=== PATIENT | male | born 1965 | race Caucasian/White ===

== ENCOUNTER 2021-12-21 16:59 | Emergency (ER) | payer OTHER ==
--- OUTSIDE RECORDS SUMMARY | 2021-12-21 17:02 | XMS REPORT | Continuity of Care Document ---
:1965 Author Organization [facility] t Address [address] [place] [address] Care Team Providers Name Role Phone ROSE Attending Clinician Unavailable Shital SPEARS Attending Clinician Unavailable Payers Payer Name Policy Type Policy Number Effective Date Expiration Date S ob [employer] CHO[employer] POS [id number] 2018 00:00:00 II Problems This patient has no known problems. Allergies, Adverse Reactions, Alerts Allergy Allergy Status Severity Reaction(s) Onset Inactive Treating Comm ents Source Name Type Date Date Clinician NO KNOWN Drug Active [facility] ALLERGIE Class [facility] Medications This patient has no known medications. Procedures This patient has no known procedures. Encounters Start End Encounter Admission Attending Care Care Encounter Source Date/Time Date/Time Type Type Clinicians Facility Department ID 2020-10-09 2020-10-09 Outpatient Iris ROSE [facility] [id number] [facility] 09:30:00 09:30:00 EDISON [id number] [facility] 2020-10-09 2020-10-09 Outpatient Iris SPEARS [facility] [id number] [facility] 09:30:00 09:30:00 NANCY [facility] Results This patient has no known results.
[2021-12-21 18:47] LABS: Absolute Lymphocytes (CBC) 1.6 K/uL (0.7-4.9); Hematocrit 44.4 % (39.6-49.0); Lymphocytes % 19.4 % (15.3-44.8); MPV 8.2 fL (7.6-11.3)
[2021-12-21 18:54] LABS: Protime INR 1.01
--- NOTE | 2021-12-21 19:01 | RAD REPORT ---
EXAM DESCRIPTION: RAD - Chest Single View - 12/21/2021 6:44 pm CLINICAL HISTORY: SOB COMPARISON: CHEST SINGLE VIEW dated 01/27/2009 FINDINGS: Lines: None. Lungs: No evidence of edema or pneumonia. Pleural: No significant pleural effusions or pneumothorax. Cardiac: The heart size is within normal limits. Bones: No acute fractures. Other: IMPRESSION: No acute cardiopulmonary disease.
[2021-12-21 19:08] LABS: ALT/SGPT 32 U/L (12-78); AST/SGOT 17 U/L (15-37); Albumin 4.3 g/dL (3.4-5.0); Alkaline Phosphatase 79 U/L (45-117); BUN Blood Urea Nitrogen 12 mg/dL (7-18); Bicarbonate 27 mmol/L (21-32); Bilirubin Direct 0.4 mg/dL (0-0.2); Bilirubin Total 2.3 mg/dL (0.2-1.0); Glucose Level 109 mg/dL (74-106); Potassium 3.6 mmol/L (3.5-5.1); Protein, Total 7.9 g/dL (6.4-8.2); Sodium Level 139 mmol/L (136-145)
[2021-12-21 21:45] LABS: Urine Blood Negative (Negative); Urine Glucose Negative (Negative); Urine Protein Negative (Negative)
[2021-12-21 22:37] LABS: Barbiturates NEGATIVE (NEGATIVE); Benzodiazepines NEGATIVE (NEGATIVE); Cocaine NEGATIVE (NEGATIVE); METHAMPHETAM NEGATIVE (NEGATIVE); Methadone NEGATIVE (NEGATIVE); Opiates NEGATIVE (NEGATIVE); Phencyclidine NEGATIVE (NEGATIVE); THC Cannibis NEGATIVE (NEGATIVE)
--- NOTE | 2021-12-21 23:03 | EDPHYS ---
Physician Documentation [facility] Name: Sandro Gomez Age: 56 yrs Sex: Male : 1965 Arrival Date: 12/21/2021 Time: 17:03 Bed 7 Private MD: ED Physician Kaiden Roberts HPI: 12/21 17:36 This 56 yrs old Male presents to ER via Ambulatory with complaints of Nausea, Decreased jmm Appetite - w/ weight loss. 17:36 The patient presents with a history of heart racing. Onset: The symptoms/episode jmm began/occurred gradually, 4 day(s) ago. Duration: The patient or guardian reports multiple episodes. Modifying factors: The symptoms are aggravated by nothing. The symptoms are alleviated by nothing. This is a 56 year old male that presents to the ED with complaints of palpitations, sob, 6 lb weight loss over the past 4 to 5 days. Patient is concerned he may be inhaling toxic material in his condo. Also states having decreased appetite and fatigue. . Historical: - Allergies: 17:17 No Known Allergies; ww - Home Meds: 17:17 None [Active]; ww - PSHx: 17:17 Appendectomy; ww - Immunization history:: Adult Immunizations up to date. - Social history:: Smoking status: Patient denies any tobacco usage or history of. Patient/guardian denies using street drugs. ROS: 17:36 Cardiovascular: Positive for palpitations, Negative for chest pain. jmm 17:36 Respiratory: Positive for shortness of breath. 17:36 Abdomen/GI: Positive for nausea. 17:36 All other systems are negative. Exam: 17:36 Constitutional: This is a well developed, well nourished patient who is awake, alert, jmm and in no acute distress. Head/Face: atraumatic. Eyes: EOMI, no conjunctival erythema appreciated ENT: Moist Mucus Membranes Neck: Trachea midline, Supple Chest/axilla: Normal chest wall appearance and motion. Cardiovascular: Regular rate and rhythm. No edema appreciated Respiratory: Normal respirations, no respiratory distress appreciated Abdomen/GI: Non distended, soft Back: Normal ROM Skin: General appearance color normal MS/ Extremity: Moves all extremities, no obvious deformities appreciated, no edema noted to the lower extremities Neuro: Awake and alert Psych: Behavior is normal, Mood is normal, Patient is cooperative and pleasant Vital Signs: 17:15 BP 151 / 99; Pulse 83; Resp 18; Temp 98.8; Pulse Ox 99% on R/A; Weight 77.11 kg; Height ww 5 ft. 10 in. (177.80 cm); Pain 0/10; 17:15 Body Mass Index 24.39 (77.11 kg, 177.80 cm) ww MDM: 17:36 Patient medically screened. jovana 23:00 Data reviewed: vital signs, nurses notes. Counseling: I had a detailed discussion with teri the patient and/or guardian regarding: the historical points, exam findings, and any diagnostic results supporting the discharge/admit diagnosis, lab results, radiology results, the need for outpatient follow up, to return to the emergency department if symptoms worsen or persist or if there are any questions or concerns that arise at home. ED course: Patient is alert nontoxic in appearance in the ED. No signs of respiratory distress. Labs are unremarkable. Patient advised follow-up PCP and otherwise given strict return precautions. Patient understood and agrees plan of care.. 12/21 18:15 Order name: Acetaminophen; Complete Time: 19:18 [facility] 12/21 18:15 Order name: Basic Metabolic Panel; Complete Time: 19:18 [facility] 12/21 18:15 Order name: CBC with Diff; Complete Time: 19:05 [facility] 12/21 18:15 Order name: ETOH Level; Complete Time: 19:05 [facility] 12/21 18:15 Order name: Hepatic Function; Complete Time: 19:18 [facility] 12/21 18:15 Order name: PT-INR; Complete Time: 19:05 [facility] 12/21 18:15 Order name: Ptt, Activated; Complete Time: 19:05 [facility] 12/21 18:15 Order name: Salicylate; Complete Time: 19:18 [facility] 12/21 18:15 Order name: Urine Drug Screen; Complete Time: 22:40 [facility] 12/21 18:15 Order name: EKG; Complete Time: 18:16 [facility] 12/21 18:15 Order name: EKG - Nurse/Tech; Complete Time: 18:45 [facility] 12/21 18:15 Order name: Chest Single View XRAY; Complete Time: 19:05 [facility] 12/21 19:19 Order name: Troponin High Sensitivity; Complete Time: 21:23 [facility] 12/21 21:45 Order name: Urine Dipstick-Ancillary; Complete Time: 21:47 [facility] 12/21 18:15 Order name: IV Saline Lock; Complete Time: 18:45 [facility] 12/21 18:15 Order name: Labs collected and sent; Complete Time: 18:45 [facility] 12/21 18:15 Order name: Urine Dipstick-Ancillary (obtain specimen); Complete Time: 21:53 [facility] Administered Medications: No medications were administered Disposition Summary: 12/21/21 23:01 Discharge Ordered Location: Home [facility] Condition: Stable jm Diagnosis - Person with feared health complaint in whom no diagnosis is made [facility] Followup: [facility] - With: Private Physician - When: 2 - 3 days - Reason: Recheck today's complaints, Continuance of care, Re-evaluation by your physician Forms: - Medication Reconciliation Form [facility] - Thank You Letter [facility] - Antibiotic Education [facility] - Prescription Opioid Use [facility] Signatures: Dispatcher [employer] Kaiden Alvarez MD MD cha Mickail, Joel, PA PA jmm Wood, Whitney RN RN ww Corrections: (The following items were deleted from the chart) 22:03 18:15 Suicide Screening (Benedict) ordered. [facility] sm5
--- NOTE | 2021-12-21 23:03 | ER ---
Nurse's Notes [facility] Name: Sandro Gomez Age: 56 yrs Sex: Male : 1965 Arrival Date: 12/21/2021 Time: 17:03 Bed 7 Private MD: Diagnosis: Person with feared health complaint in whom no diagnosis is made Presentation: 12/21 17:15 Chief complaint: Patient states: Smelling an odor in his condo that is causing a ww burning sensation in his nose and throat. He has had a 7lb weight loss in a few days. Complaining of nausea and suppress appetite. Had the petroleum refining firer and police come out today and they did not smell. He wants to be examined to see if he has any drug or toxin that he has been exposed it. Coronavirus screen: Vaccine status: Patient reports receiving the 2nd dose of the covid vaccine. Client denies travel out of the [place] in the last 14 days. Ebola Screen: Patient denies travel to an Ebola-affected area in the 21 days before illness onset. Initial Sepsis Screen: Does the patient meet any 2 criteria? No. Patient's initial sepsis screen is negative. Does the patient have a suspected source of infection? No. Patient's initial sepsis screen is negative. Risk Assessment: Do you want to hurt yourself or someone else? Patient reports no desire to harm self or others. Onset of symptoms is unknown. 17:15 Method Of Arrival: Ambulatory ww 17:15 Acuity: ESME 4 ww Triage Assessment: 17:17 General: Appears in no apparent distress. comfortable, Behavior is cooperative, ww anxious. Pain: Denies pain. Neuro: Level of Consciousness is awake, alert, obeys commands, Oriented to person, place, time, situation, Moves all extremities. Gait is steady, Speech is normal. Cardiovascular: Capillary refill < 3 seconds Patient's skin is warm and dry. Respiratory: Airway is patent Respiratory effort is even, unlabored, Respiratory pattern is regular, symmetrical. GI: Reports change in bowel habit. Musculoskeletal: No signs and/or symptoms reported regarding the musculoskeletal system. Historical: - Allergies: 17:17 No Known Allergies; ww - Home Meds: 17:17 None [Active]; ww - PSHx: 17:17 Appendectomy; ww - Immunization history:: Adult Immunizations up to date. - Social history:: Smoking status: Patient denies any tobacco usage or history of. Patient/guardian denies using street drugs. Screenin:37 Abuse screen: Denies threats or abuse. Denies injuries from another. Nutritional kd3 screening: No deficits noted. Tuberculosis screening: No symptoms or risk factors identified. Fall Risk IV access (20 points). Assessment: 20:37 General: Appears in no apparent distress. Behavior is calm, cooperative, appropriate kd3 for age. GI: Reports nausea. Vital Signs: 17:15 BP 151 / 99; Pulse 83; Resp 18; Temp 98.8; Pulse Ox 99% on R/A; Weight 77.11 kg; Height ww 5 ft. 10 in. (177.80 cm); Pain 0/10; 17:15 Body Mass Index 24.39 (77.11 kg, 177.80 cm) ww ED Course: 17:03 Patient arrived in ED. ds1 17:17 Triage completed. ww 17:17 Arm band placed on right wrist. ww 17:20 Margarito Henry PA is PHCP. [facility] 17:20 Kaiden Roberts MD is Attending Physician. [facility] 18:02 Jose Martin Nj, LAMONT is Primary Nurse. jl7 18:44 Chest Single View XRAY In Process Unspecified. EDMS 18:46 Initial lab(s) drawn, by pr, sent to lab. ww 18:48 EKG done, by ED staff, reviewed by Kaiden Roberts MD. jw7 20:37 Patient has correct armband on for positive identification. Bed in low position. Call kd3 light in reach. 20:37 Inserted saline lock: 20 gauge in left forearm, using aseptic technique. kd3 23:01 No provider procedures requiring assistance completed. IV discontinued, intact, sm5 bleeding controlled, No redness/swelling at site. Pressure dressing applied. Administered Medications: No medications were administered Outcome: 23:01 Discharge ordered by . teri 23:02 Discharged to home sm5 23:02 Condition: stable 23:02 Instructed on discharge instructions, follow up and referral plans. 23:05 Patient left the ED. 5 Signatures: Dispatcher [employer] EDMS Margarito Henry PA PA [facility] Nasrin Palomo ds1 Jose Martin Nj, LAMONT RN Adriana Barrett RN RN kd3 Sarah Hayes, RN RN sm5 Kylie Pitts, RN RN ww Jodi Rene jw7
[2021-12-21 23:35] VITALS: BP 151/99; TEMP 98.8; O2SAT 99
== END 2021-12-21 23:05 | disposition home or self-care (01) ==
LOC: ER 16:59
DX: Z71.1 Person with feared health complaint in whom no diagnosis is made (principal); R06.02 Shortness of breath; R11.0 Nausea; R63.4 Abnormal weight loss
CPT/HCPCS: 36415; 71045; 80048; 80076; 80307; 80320; 80329; 81003; 84484; 85025; 85610; 85730; 93005; 99284